=== PATIENT | male | born 1980 | race Two or more races ===

== ENCOUNTER 2018-10-23 20:40 | Emergency (ER) | payer SELFPAY ==
[~2018-10-23] VITALS: Ht 167.6 cm; Wt 90.7 kg
[2018-10-23 22:33] VITALS: BP 139/98
[2018-10-23] MEDS ORDERED: FLUORESCEIN SOD 1 MG TEST STRIP LEFTEYE ONE (22:45)
== END 2018-10-24 00:13 | disposition home or self-care (01) ==
LOC: ER 20:40
DX: T15.01XA Foreign body in cornea, right eye, initial encounter (principal); H44.3 Other and unspecified degenerative disorders of globe; H16.002 Unspecified corneal ulcer, left eye; W22.8XXA Striking against or struck by other objects, initial encounter; Y93.89 Activity, other specified; Y99.8 Other external cause status; Y92.89 Other specified places as the place of occurrence of the external cause
CPT/HCPCS: 65220

== ENCOUNTER → 2024-04-08 | Day surgery (SDC) | payer MEDICAID ==
[2024-04-06 10:34] LABS: Urine Bacteria None Seen /hpf (None Seen)
[2024-04-06 10:43] LABS: Basophils # (auto) 0 10 ^3/uL (0-0.2); Eosinophils # (auto) 0.1 10 ^3/uL (0-0.8); Eosinophils % (auto) 0.8 % (0.0-7.0); Monocytes # (auto) 0.8 10 ^3/uL (0-1.3)
[2024-04-06 10:47] LABS: Basophils % (auto) 0.5 % (0.0-2.0); Hematocrit 51.3 % (41.0-53.0); Hemoglobin 17.4 g/dL (13.5-17.5); Lymphocytes # (auto) 2.6 10 ^3/uL (0.4-5.4); Lymphocytes % (auto) 28.5 % (10.0-50.0); Mean Corpuscular Hgb Conc. 33.9 g/dL (32.0-36.0); Mean Corpuscular Volume 85.6 fL (80.0-100.0); Monocytes % (auto) 8.4 % (0.0-12.0); Neutrophils # (auto) 5.7 10 ^3/uL (1.6-8.6); Neutrophils % (auto) 61.8 % (37.0-80.0); Nucleated Red Blood Cells % 0.5 %; Platelet Count (auto) 274 10^3/uL (140-450); Red Blood Cells 5.99 10^6/uL (4.5-5.90); White Blood Cell 9.2 10^3/uL (4.4-10.8)
[2024-04-06 11:01] LABS: INR 0.97 (0.9-1.15); Partial Thromboplastin Time 24.5 SEC (24.5-34.5); Prothrombin Time 10.3 sec (9.3-11.8)
[2024-04-06 11:12] LABS: Urine Blood Negative /uL (Negative); Urine Clarity Clear (Clear); Urine Color Light-Yellow (Yellow); Urine Protein, UAD Negative (Negative); Urine Specific Gravity 1.021 (1.001-1.035); Urine Squamous Epithelial Cell None Seen /hpf (<5); Urine Urobilinogen Normal (Negative); Urine WBC < 1 /HPF (0-3)
[2024-04-06 11:40] LABS: Alanine Aminotransferase 18 U/L (7-40); Albumin 4.6 g/dL (3.2-4.8); Anion Gap 7 (5-15); BUN/Creatinine Ratio 16.8 (10.0-20.0); Blood Urea Nitrogen 17 mg/dL (9-23); Calcium 10.3 mg/dL (8.7-10.4); Carbon Dioxide 30 mmol/L (20-31); Chloride 101 mmol/L (98-107); Potassium 4.7 mmol/L (3.5-5.1); Sodium 138 mmol/L (136-145)
[2024-04-06 11:41] LABS: Bilirubin, Total 0.7 mg/dL (0.2-1.0); Total Protein 6.9 g/dL (5.7-8.2)
[2024-04-06 11:42] LABS: Aspartate Aminotransferase < 8 U/L (13-40); Glucose 282 mg/dL (74-106)
[2024-04-06 12:28] LABS: Alkaline Phosphatase 82 U/L (46-116)
[~2024-04-08] VITALS: Ht 167.6 cm; Wt 80.7 kg
[~2024-04-08] MED LIST: ACCU-CHEK COMFORT CURVE STRIP VI ONE; HYDROmorphone HCL 2 MG/ML VL/or syr IV PRN; METF-370 PO; ONDANSETRON HCL 4 MG/2 ML VIAL IV ONE
== END | disposition home or self-care (01) ==
LOC: SUR 09:19
PROVIDERS: ATTEND Urology
DX: N47.1 Phimosis (principal); Z53.8 Procedure and treatment not carried out for other reasons; E11.9 Type 2 diabetes mellitus without complications; Z79.84 Long term (current) use of oral hypoglycemic drugs
CPT/HCPCS: 36415; 80053; 81001; 82962; 85025; 85610; 85730; 87086